=== PATIENT | female | born 1950 | race Caucasian/White ===

== ENCOUNTER 2016-07-19 16:53 | Emergency (ER) | payer MEDICARE, MEDICAID ==
[2016-07-19] MEDS ORDERED: KCL CR 20 MEQ TAB PO ONE (18:43)
== END 2016-07-19 18:58 | disposition home or self-care (01) ==
LOC: ER 16:53
DX: E87.6 Hypokalemia (principal); I49.3 Ventricular premature depolarization; Z79.899 Other long term (current) drug therapy; Z79.84 Long term (current) use of oral hypoglycemic drugs; E11.9 Type 2 diabetes mellitus without complications; J44.9 Chronic obstructive pulmonary disease, unspecified; J45.909 Unspecified asthma, uncomplicated
CPT/HCPCS: 36415; 80053; 83690; 85025; 93005